=== PATIENT | female | born 1935 | race Caucasian/White ===

== ENCOUNTER 2021-03-04 18:57 | Emergency (ER) | payer MEDICARE, MEDICAID ==
[~2021-03-04] VITALS: Ht 147.3 cm; Wt 56.8 kg
[~2021-03-04 18:57] MED LIST: DIAZ2TAB PO; DIAZ5TAB PO; ONDA8TAB9 PO
[2021-03-04 19:24] VITALS: BP 129/90
[2021-03-04] MEDS ORDERED: TETanus/Pertussis (Acell)/Diphther VAC/PF (Tdap-Adult) 0.5ml syringe IMVAC ONE (21:40)
== END 2021-03-04 21:49 | disposition home or self-care (01) ==
LOC: ER 18:57
DX: S61.031A Puncture wound without foreign body of right thumb without damage to nail, initial encounter (principal); E78.00 Pure hypercholesterolemia, unspecified; G89.29 Other chronic pain; Z90.49 Acquired absence of other specified parts of digestive tract; Z90.710 Acquired absence of both cervix and uterus; Z56.0 Unemployment, unspecified; N19 Unspecified kidney failure; X58.XXXA Exposure to other specified factors, initial encounter; Y93.89 Activity, other specified; Y92.89 Other specified places as the place of occurrence of the external cause; Y99.8 Other external cause status
CPT/HCPCS: 90471; 90715; 99283